=== PATIENT | male | born 2000 | race Caucasian/White ===

== ENCOUNTER 2020-04-30 21:48 | Emergency (ER) | payer MEDICAID ==
--- NOTE | 2020-04-30 22:04 | ERPHSYRPT ---
- History of Present Illness Time Seen by Provider: 04/30/20 22:04 Source: patient Exam Limitations: no limitations Physician History: This is a 20-year-old white male who was brought in by the police department because of suicidal ideation with a plan. Patient and his got into a big argument today and they are per his report. He told his that he was going to commit suicide by taking multiple pills. Patient states he has never been through this type of thing before. Patient denies chest pain and denies shortness of breath. He denies abdominal pain. He said no nausea vomiting or diarrhea. Patient denies any ingestion of any kind of over-the- counter medication or illicit drug use. Timing/Duration: today Severity of Symptoms-Max: moderate Severity of Symptoms-Current: moderate Context related to: significant other Suicidal thoughts: specific plan Associated Symptoms: depressed, frustrated, suicidal ideation Previous symptoms: no prior history Allergies/Adverse Reactions: No Known Drug Allergies Allergy (Unverified 04/30/20 21:54) Home Medications: No Reportable Medications [No Reported Medications] 04/30/20 [History] Travel Risk - International Travel Have you traveled outside of the country in past 3 weeks: No - Coronavirus Screening Are you exhibiting any of the following symptoms?: No Close contact with a COVID-19 positive Pt in past 14-21 Days: No - Past Medical History Pertinent Past Medical History: Yes - Past Surgical History Past Surgical History: Yes - Review of Systems Constitutional: No Symptoms Eyes: No Symptoms Ears, Nose, & Throat: No Symptoms Respiratory: No Symptoms Cardiac: No Symptoms Abdominal/Gastrointestinal: No Symptoms Genitourinary Symptoms: No Symptoms Musculoskeletal: No Symptoms Skin: No Symptoms Neurological: No Symptoms Psychological: Depression, Suicidal Ideations Endocrine: No Symptoms Hematologic/Lymphatic: No Symptoms Immunological/Allergic: No Symptoms All Other Systems: Reviewed and Negative - Nursing Vital Signs Nursing Vital Signs: Initial Vital Signs Temperature 98.2 F 04/30/20 21:48 Pulse Rate 84 04/30/20 21:48 Respiratory Rate 16 04/30/20 21:48 Blood Pressure 155/105 04/30/20 21:48 O2 Sat by Pulse Oximetry 100 04/30/20 21:48 Pain Scale Pain Intensity 0 - Physical Exam General Appearance: no apparent distress, alert, anxiety Eyes, Ears, Nose, Throat Exam: normal ENT inspection, moist mucous membranes Neck Exam: normal inspection, non-tender, supple, full range of motion Respiratory Exam: normal breath sounds, lungs clear, airway intact, No chest tenderness, No respiratory distress Cardiovascular Exam: regular rate/rhythm, normal heart sounds, normal peripheral pulses Gastrointestinal/Abdominal Exam: soft, normal bowel sounds, No tenderness Extremities Exam: normal inspection, normal range of motion, No evidence of injury Current Suicidality: has suicide plan Neurological Exam: alert, normal mood/affect, calm, equine internship II-XII nml as tested, oriented x 3, anxious, depressed affect Appearance: appropriate appearance, appropriate insight Behavior/Eye Contact/Speech: alert & cooperative, good eye contact Thoughts/Hallucinations: normal thought pattern, no apparent hallucination Skin Exam: normal color, warm, dry SpO2 Interpretation: normal O2 Delivery: Room Air - Course Nursing assessment & vital signs reviewed: Yes EKG Interpreted by Me: RATE (64), Sinus Rhythm, NORMAL AXIS, NORMAL INTERVALS, NORMAL QRS, NORMAL ST-T, Other (No acute ischemic changes. No comparison EKG available) Ordered Tests: Active Orders 24 hr Category Date Time Status EKG-ER Only STAT Care 04/30/20 22:04 Active ACETAMINOPHEN Stat Lab 04/30/20 22:20 Completed CBC W DIFF Stat Lab 04/30/20 22:20 Completed CMP Stat Lab 04/30/20 22:20 Completed ETHYL ALCOHOL Stat Lab 04/30/20 22:20 Completed SALICYLATE Stat Lab 04/30/20 22:20 Completed UA W/RFX UR CULTURE Stat Lab 04/30/20 22:20 Completed Urine Triage Profile Stat Lab 04/30/20 22:20 Completed Medication Summary Discontinued Medications Generic Name Dose Route Start Last Admin Trade Name Santosh PRN Reason Stop Dose Admin Lorazepam 0.5 mg 04/30/20 22:21 04/30/20 22:40 Ativan 0.5 Mg PO 04/30/20 22:22 0.5 mg STAT ONE Administration Lorazepam Confirm 04/30/20 22:39 Ativan 1 Mg Administered 04/30/20 22:40 Dose 1 mg .ROUTE .STFluGen-MED ONE Lab/Rad Data: Laboratory Result Diagrams 04/30/20 22:20 04/30/20 22:20 Laboratory Results 05/01/20 04/30/20 04/30/20 Range/Units 01:23 22:20 22:20 WBC (4.0-10.5) K/mm3 RBC (4.1-5.6) M/mm3 Hgb (12.5-18.0) gm/dl Hct (42-50) % MCV (78-100) fl MCH (26-32) pg MCHC (32-36) g/dl RDW (11.5-14.0) % Plt Count (150-450) K/mm3 MPV (7.5-11.0) fl Gran % (36.0-66.0) % Eos # (Auto) (0-0.5) Absolute Lymphs (auto) (1.0-4.6) Absolute Monos (auto) (0.0-1.3) Lymphocytes % (24.0-44.0) % Monocytes % (0.0-12.0) % Eosinophils % (0.00-5.0) % Basophils % (0.0-0.4) % Absolute Granulocytes (1.4-6.9) Basophils # (0-0.4) Sodium (137-145) mmol/L Potassium (3.5-5.1) mmol/L Chloride (98-107) mmol/L Carbon Dioxide (22-30) mmol/L Anion Gap (5-15) MEQ/L BUN (9-20) mg/dL Creatinine (0.66-1.25) mg/dL Estimated GFR ML/MIN Glucose (74-106) mg/dL Calcium (8.4-10.2) mg/dL Total Bilirubin (0.2-1.3) mg/dL AST (17-59) U/L ALT (0-50) U/L Alkaline Phosphatase (38-126) U/L Serum Total Protein (6.3-8.2) g/dL Albumin (3.5-5.0) g/dL Urine Color YELLOW (YELLOW) Urine Appearance CLEAR (CLEAR) Urine pH 7.0 (5-6) Ur Specific [place] 1.024 (1.005-1.025) Urine Protein NEGATIVE (Negative) Urine Ketones NEGATIVE (NEGATIVE) Urine Blood NEGATIVE (0-5) Evan/ul Urine Nitrite NEGATIVE (NEGATIVE) Urine Bilirubin NEGATIVE (NEGATIVE) Urine Urobilinogen 2 (0-1) mg/dL Ur Leukocyte Esterase NEGATIVE (NEGATIVE) Urine WBC (Auto) NONE (0-5) /HPF Urine RBC (Auto) NONE (0-2) /HPF U Epithel Cells (Auto) NONE (FEW) /HPF Urine Bacteria (Auto) NONE (NEGATIVE) /HPF Urine Mucus (Auto) SLIGHT (NEGATIVE) /HPF Urine Culture Reflexed NO (NO) Urine Glucose NEGATIVE (NEGATIVE) mg/dL Salicylates (2-20) mg/dL Urine Opiates Level NEGATIVE (NEGATIVE) Ur Methadone NEGATIVE (NEGATIVE) Acetaminophen (10-30) ug/ml Urine Barbiturates NEGATIVE (NEGATIVE) Ur Phencyclidine (PCP) NEGATIVE (NEGATIVE) Urine Amphetamine NEGATIVE (NEGATIVE) U Benzodiazepine Level NEGATIVE (NEGATIVE) Urine Cocaine NEGATIVE (NEGATIVE) Urine Marijuana (THC) POSITIVE (NEGATIVE) Ethyl Alcohol (0-10) mg/dL SARS-CoV-2 Ag (Rapid) NEGATIVE (NEGATIVE) 04/30/20 04/30/20 Range/Units 22:20 22:20 WBC 9.3 (4.0-10.5) K/mm3 RBC 5.33 (4.1-5.6) M/mm3 Hgb 15.4 (12.5-18.0) gm/dl Hct 45.5 (42-50) % MCV 85.4 (78-100) fl MCH 28.9 (26-32) pg MCHC 33.8 (32-36) g/dl RDW 12.9 (11.5-14.0) % Plt Count 293 (150-450) K/mm3 MPV 9.6 (7.5-11.0) fl Gran % 76.9 H (36.0-66.0) % Eos # (Auto) 0.05 (0-0.5) Absolute Lymphs (auto) 1.60 (1.0-4.6) Absolute Monos (auto) 0.47 (0.0-1.3) Lymphocytes % 17.2 L (24.0-44.0) % Monocytes % 5.1 (0.0-12.0) % Eosinophils % 0.5 (0.00-5.0) % Basophils % 0.3 (0.0-0.4) % Absolute Granulocytes 7.15 H (1.4-6.9) Basophils # 0.03 (0-0.4) Sodium 142 (137-145) mmol/L Potassium 3.7 (3.5-5.1) mmol/L Chloride 106 (98-107) mmol/L Carbon Dioxide 26 (22-30) mmol/L Anion Gap 14.1 (5-15) MEQ/L BUN 10 (9-20) mg/dL Creatinine 0.96 (0.66-1.25) mg/dL Estimated GFR > 60.0 ML/MIN Glucose 114 H (74-106) mg/dL Calcium 10.2 (8.4-10.2) mg/dL Total Bilirubin 0.50 (0.2-1.3) mg/dL AST 36 (17-59) U/L ALT 91 H (0-50) U/L Alkaline Phosphatase 47 (38-126) U/L Serum Total Protein 7.7 (6.3-8.2) g/dL Albumin 4.6 (3.5-5.0) g/dL Urine Color (YELLOW) Urine Appearance (CLEAR) Urine pH (5-6) Ur Specific [place] (1.005-1.025) Urine Protein (Negative) Urine Ketones (NEGATIVE) Urine Blood (0-5) Evan/ul Urine Nitrite (NEGATIVE) Urine Bilirubin (NEGATIVE) Urine Urobilinogen (0-1) mg/dL Ur Leukocyte Esterase (NEGATIVE) Urine WBC (Auto) (0-5) /HPF Urine RBC (Auto) (0-2) /HPF U Epithel Cells (Auto) (FEW) /HPF Urine Bacteria (Auto) (NEGATIVE) /HPF Urine Mucus (Auto) (NEGATIVE) /HPF Urine Culture Reflexed (NO) Urine Glucose (NEGATIVE) mg/dL Salicylates < 1.0 L (2-20) mg/dL Urine Opiates Level (NEGATIVE) Ur Methadone (NEGATIVE) Acetaminophen < 10 L (10-30) ug/ml Urine Barbiturates (NEGATIVE) Ur Phencyclidine (PCP) (NEGATIVE) Urine Amphetamine (NEGATIVE) U Benzodiazepine Level (NEGATIVE) Urine Cocaine (NEGATIVE) Urine Marijuana (THC) (NEGATIVE) Ethyl Alcohol < 10 (0-10) mg/dL SARS-CoV-2 Ag (Rapid) (NEGATIVE) - Progress Progress: unchanged, re-examined Counseled pt/family regarding: lab results, diagnosis, need for follow-up, rad results - Departure Departure Disposition: Transfer Clinical Impression: Suicidal ideation Condition: Stable Critical Care Time: No Referrals: RUPAL HILL [Primary Care Provider] -
[2020-04-30] MEDS ORDERED: Ativan 0.5 MG PO ONE (22:21)
[2020-04-30 22:24] LABS: Absolute Neutrophil Ct (ANC) 7.15 (1.4-6.9); BASOPHIL % 0.3 % (0.0-0.4); Basophil (Absolute #) 0.03 (0-0.4); Eosinophil % 0.5 % (0.00-5.0); Eosinophil (Absolute #) 0.05 (0-0.5); Hematocrit 45.5 % (42-50); Hemoglobin 15.4 gm/dl (12.5-18.0); Lymphocytes % 17.2 % (24.0-44.0); Mean Cell Volume 85.4 fl (78-100); Mean Corpuscular Hemoglobin 28.9 pg (26-32); Mean Corpuscular Hgb Concent. 33.8 g/dl (32-36); Mean Platelet Volume 9.6 fl (7.5-11.0); Monocyte (Absolute #) 0.47 (0.0-1.3); Monocytes % 5.1 % (0.0-12.0); Neutrophil % 76.9 % (36.0-66.0); Platelet Count 293 K/mm3 (150-450); Red Blood Count 5.33 M/mm3 (4.1-5.6); Red Cell Distribution Width 12.9 % (11.5-14.0); White Blood Count 9.3 K/mm3 (4.0-10.5)
[2020-04-30 22:26] LABS: Appearance CLEAR (CLEAR); Bilirubin NEGATIVE (NEGATIVE); Blood NEGATIVE Ery/ul (0-5); Glucose NEGATIVE (NEGATIVE); Ketones NEGATIVE (NEGATIVE); Leukocyte Esterase NEGATIVE (NEGATIVE); Mucus SLIGHT /HPF (NEGATIVE); Nitrite NEGATIVE (NEGATIVE); Protein,Urine Dip NEGATIVE (Negative); Specific Gravity 1.024 (1.005-1.025); Urobilinogen 2 mg/dL (0-1)
[2020-04-30 22:35] LABS: ACETAMINOPHEN < 10 ug/ml (10-30); ALBUMIN 4.6 g/dL (3.5-5.0); ALKALINE PHOSPHATASE 47 U/L (38-126); ANION GAP 14.1 MEQ/L (5-15); BLOOD UREA NITROGEN 10 mg/dL (9-20); CHLORIDE 106 mmol/L (98-107); Calcium 10.2 mg/dL (8.4-10.2); Carbon Dioxide 26 mmol/L (22-30); Creatinine 1 0.96 mg/dL (0.66-1.25); EST GLOMERULAR FILTRATION RATE > 60.0 ML/MIN; ETHYL ALCOHOL < 10 mg/dL (0-10); Glucose 114 mg/dL (74-106); Potassium 3.7 mmol/L (3.5-5.1); SALICYLATE < 1.0 mg/dL (2-20); SGOT/AST 36 U/L (17-59); SGPT/ALT 91 U/L (0-50); SODIUM 142 mmol/L (137-145); Total Protein 7.7 g/dL (6.3-8.2)
[2020-04-30 22:38] LABS: Amphetamine,Urine NEGATIVE (NEGATIVE); Barbiturate,Urine NEGATIVE (NEGATIVE); Benzodiazepine,Urine NEGATIVE (NEGATIVE); Cocaine,Urine NEGATIVE (NEGATIVE); Methadone,Urine NEGATIVE (NEGATIVE); Opiate,Urine NEGATIVE (NEGATIVE); PCP,Urine NEGATIVE (NEGATIVE); THC,Urine POSITIVE (NEGATIVE)
[2020-04-30] MEDS ORDERED: Ativan 1 MG ONE (22:39)
[2020-05-01 01:14] VITALS: O2SAT 98
[2020-05-01 01:39] LABS: COVID AG -BINAX NOW RAPID TEST NEGATIVE (NEGATIVE)
[2020-05-01 03:09] VITALS: BP 154/93; PULSE 75
== END 2020-05-01 03:40 ==
LOC: ED 21:48
DX: R45.851 Suicidal ideations (principal); F32.9 Major depressive disorder, single episode, unspecified
CPT/HCPCS: 36415; 80053; 80307; 81001; 85025; 93005; 99000; 99285; A9270-GY; G0480

== ENCOUNTER 2020-09-07 09:50 | Day surgery (SDC) | payer MEDICAID, OTHER ==
--- NOTE | 2020-09-07 08:00 | HP ---
DATE OF SURGERY: 09/07/2020 HISTORY OF PRESENT ILLNESS: The patient is a 20 year-old who had some problem with eczema and discomfort. He has pilonidal cyst disease that would benefit from excision. 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 Reflux. Eczema. PAST SURGICAL HISTORY: Pyloric stenosis surgery as a child. Tonsillectomy. MEDICATIONS: Claritin, mirtazapine, omeprazole, sertraline, hydrocortisone. ALLERGIES: NKDA. FAMILY HISTORY: Negative in regards to this problem. SOCIAL HISTORY: He does vape, denies alcohol abuse. REVIEW OF SYSTEMS: Fourteen systems reviewed per noted above. No chest pain or palpitations. Other systems negative or noncontributory as above and per preadmission questionnaire. PHYSICAL EXAMINATION: GENERAL: No acute distress. HEENT: Sclerae nonicteric. NECK: No JVD. CHEST: Equal excursion, nonlabored breathing. CVS: Regular rate and rhythm. ABDOMEN: Soft, nontender. EXTREMITIES: No significant edema. NEURO: Alert, oriented, moving extremities symmetrically. No gross motor deficits noted. PSYCH: Appropriate mood and affect. IMPRESSION: Pilonidal area there are some pits consistent with pilonidal cyst disease. Pilonidal cyst disease, symptomatic pilonidal cyst disease, increasing discomfort. He is in need of excision and biopsy. Discussed risks and benefits of the procedure in detail but not limited to bleeding or infection, possible need for packing which could take eight to twelve weeks to heal, 5% heal slow and 5% fail to heal, possibly need other procedures or intervention. It is important to keep all hair away from the wound perioperatively and long-term down the road to decrease risk of recurrence. Important that it needs to be packed with packing to the base of the wound to minimize infection to the area. He understands as this it is cleaned up at the time of the procedure and we are able to close this with flaps, there is a possibility of dehiscence later requiring packing and aches, pains, burning or numbness. Risk of anesthesia, deep vein thrombosis, pulmonary embolism, pneumonia as well as risk of bleeding, up to possible 10% risk of recurrence possibly requiring other treatments or procedures. He understands and agrees to the planned procedure, will proceed with excision of pilonidal cyst disease possible flap closure, possible packing as an outpatient.
[~2020-09-07 09:50] MED LIST: Lactated Ringers 1,000 ML IV ONE; Sensorcaine 0.25% 10 ML ONE
[2020-09-07] MEDS ORDERED: CEFAZOLIN 2 GM-D5W BAG** 2 GM/50 ML ML IV ONE (09:56)
[2020-09-07] MEDS ORDERED: Lactated Ringers 1,000 ML IV SCH (10:00)
[2020-09-07] MEDS ORDERED: CEFAZOLIN 2 GM-D5W BAG** 2 GM/50 ML ML IV SCH (10:00)
[2020-09-07] MEDS ORDERED: DIPRIVAN 200 MG/20 ML IV ONE (12:32)
[2020-09-07] MEDS ORDERED: SUBLIMAZE 100 MCG/2 ML ONE ×3 (12:32→13:46)
[2020-09-07] MEDS ORDERED: Quelicin Fliptop 200 MG/10 ML ONE (12:32)
[2020-09-07] MEDS ORDERED: Versed 2 MG/2 ML Injection ONE (12:33)
[2020-09-07] MEDS ORDERED: Zemuron 100 MG/10 ML ONE (13:00)
[2020-09-07] MEDS ORDERED: BRIDION 200MG/2ML IV ONE (13:13)
[2020-09-07] MEDS ORDERED: TORAdol 30 mg Injection ONE (13:45)
[2020-09-07 15:01] VITALS: BP 125/85; PULSE 75; O2SAT 99
--- NOTE | 2020-09-08 08:47 | OP ---
SURGERY DATE/TIME: 09/07/2020 1230 PREOPERATIVE DIAGNOSIS: Persistent pilonidal cyst disease, history of infection in the past. POSTOPERATIVE DIAGNOSIS: Persistent pilonidal cyst disease, history of infection in the past. PROCEDURE: Excisional biopsy pilonidal cyst disease with advancement flap closure. SURGEON: Dr. Torrey Rubio. ANESTHESIA: General. ESTIMATED BLOOD LOSS: Minimal. INDICATIONS: As noted above. Risks and benefits explained in detail and not limited to and consent obtained. DESCRIPTION OF PROCEDURE AND FINDINGS: The patient is taken to the operating room. General anesthesia induced. Placed in prone position, appropriate padding positioned per anesthesia and OR staff. Prepped and draped in usual sterile fashion. After official time out and no disagreement with planned procedure, marking out along the pits in the midline, dissection is carried deep down to the level of the post-sacral fascial area carefully mobilizing the pit and track off. Total area around the area to get margins was about 6 cm out to normal appearing subcutaneous tissue surrounding the area. It was passed off for pathology. The wound is irrigated out. Hemostasis controlled with some pinpoint cautery. Good hemostasis noted. As there had been no kan pus pocket it was felt worthwhile to try to close this with local flaps. Therefore the flaps were undermined on either side and advanced back to midline with interrupted 3-0 Vicryl in the deep subcu and tissue as well as the superficial subcu portion of the flap. The skin closed with 4-0 Vicryl and interrupted 3-0 Prolene used to reinforce the skin given location, Dermabond, sterile dressing applied. The patient tolerated the procedure well. There were no immediate complications. Again, about 6 cm in size. Findings discussed with the family out in the waiting area.
== END 2020-09-07 15:05 | disposition home or self-care (01) ==
LOC: SDC 09:50
PROVIDERS: ATTEND Surgery
DX: L05.91 Pilonidal cyst without abscess (principal)
CPT/HCPCS: J0330; J0690; J1885; J2250; J2704; J3010

== ENCOUNTER 2024-01-16 08:30 | Emergency (ER) | payer OTHER ==
[2024-01-16 08:42] VITALS: TEMP 96.8
[2024-01-16 09:14] LABS: Absolute Neutrophil Ct (ANC) 3.23 x10^3/uL (1.78-5.38); BASOPHIL % 0.8 % (0.2-1.2); Basophil (Absolute #) 0.05 x10^3/uL (0.01-0.08); Eosinophil % 3.8 % (0.8-7.0); Eosinophil (Absolute #) 0.25 x10^3/uL (0.04-0.54); Hematocrit 44.3 % (40.1-51.0); Hemoglobin 14.8 g/dL (13.7-17.5); IMMATURE GRAN # 0.03 x10^3u/L (0.001-0.031); IMMATURE GRAN % 0.5 % (0.001-0.429); Lymphocyte (Absolute #) 2.53 x10^3/uL (1.32-3.57); Lymphocytes % 38.2 % (21.8-53.1); Mean Cell Volume 86.4 fL (79.0-92.2); Mean Corpuscular Hemoglobin 28.8 pg (25.7-32.2); Mean Corpuscular Hgb Concent. 33.4 g/dL (32.3-36.5); Mean Platelet Volume 9.3 fL (9.4-12.4); Monocyte (Absolute #) 0.54 x10^3/uL (0.30-0.82); Monocytes % 8.1 % (5.3-12.2); Neutrophil % 48.6 % (34.0-67.9); Platelet Count 255 x10^3/uL (163-337); Red Blood Count 5.13 x10^6/uL (4.63-6.08); Red Cell Distribution Width 12.2 % (11.6-14.4); White Blood Count 6.6 x10^3/uL (4.23-9.07)
[2024-01-16] MEDS ORDERED: MORPHINE SULFATE 4 MG INJ ONE (09:18)
[2024-01-16] MEDS ORDERED: Sodium Chloride 0.9% 1000 ML 1,000 ML ONE (09:18)
[2024-01-16] MEDS ORDERED: Zofran 4 MG/2 ML VIAL ONE (09:18)
[2024-01-16 09:26] LABS: ALBUMIN 4.5 g/dL (3.5-5.0); ANION GAP 16.3 MEQ/L (5-15); BILIRUBIN,TOTAL 0.5 mg/dL (0.2-1.3); Calcium 9.5 mg/dL (8.4-10.2); Creatinine 1 1.05 mg/dL (0.66-1.25); Potassium 4.1 mmol/L (3.5-5.1); Total Protein 7.5 g/dL (6.3-8.2)
[2024-01-16] MEDS: MORPHINE SULFATE 4 MG INJ IV ONE (09:27)
[2024-01-16] MEDS: Sodium Chloride 0.9% 1000 ML 1,000 ML IV STA (09:27)
[2024-01-16] MEDS: Zofran 4 MG/2 ML VIAL IV ONE (09:27)
--- NOTE | 2024-01-16 10:37 | ERPHSYRPT ---
- History of Present Illness Time Seen by Provider: 01/16/24 08:45 Source: patient Exam Limitations: no limitations Patient Subjective Stated Complaint: pt c/o of right sided face pain Triage Nursing Assessment: Pt brought to the ER by his /girlfriend, hypertensive, rates pain anywhere from 7-10/10, pulses normal, skin n/w/d, no difficulty breathing, had this pain last month and was told that it was teeth and he has had them extracted, pain up the right side of his face from his jaw to his quaker Physician History: 23-year-old male presents to our ED for evaluation of right-sided neck pain. Patient states the pain has been ongoing for approximately a month however pain acutely worse last night.. During patient's last ED visit he was advised that the pain was due to his teeth. Patient followed up with a dentist and had molars extracted. And spite of this management patient reports the pain has persisted. Pain described as an ache that is localized to the anterior aspect of the neck just right to the trachea. Pain radiates upward into the jaw. No associated chest pain no nausea vomiting or diaphoresis. Pain reproduced with palpation to the involved area. Pain improved with rest somewhat. No trauma. No difficulty swallowing or breathing. Patient tolerating oral secretions well. Patient has multiple carious dentition. Patient states otherwise healthy. Significant other at bedside along with 2 children. They voiced no other complaints or concerns at this time. Portions of this note were created with voice recognition technology. There may be grammatical, spelling, punctuation or sound alike errors Timing/Duration: week(s) (Pain for several weeks however pain acutely worse last night) Severity: moderate Modifying Factors: Improves With: nothing Associated Symptoms: denies symptoms Allergies/Adverse Reactions: No Known Drug Allergies Allergy (Verified 01/16/24 08:42) Home Medications: Mirtazapine [Remeron] 15 mg PO DAILY 08/26/20 [History] Dicyclomine HCl 20 mg [Bentyl 20 mg] 20 mg PO BID 01/16/24 [History] Hydroxyzine HCl 25 mg [Atarax 25 mg] 25 mg PO BID 01/16/24 [History] Lisdexamfetamine Dimesylate [Vyvanse] 30 mg PO DAILY 01/16/24 [History] Lisinopril 10 mg [Zestril 10 MG] 10 mg PO DAILY 01/16/24 [History] Hx Tetanus, Diphtheria Vaccination/Date Given: Yes Hx Influenza Vaccination/Date Given: No Travel Risk - International Travel Have you traveled outside of the country in past 3 weeks: No - Emerging Infectious Disease Are you exhibiting symptoms associated with any current EIDs: No - Review of Systems Constitutional: No Symptoms, No Fever, No Chills Eyes: No Symptoms Ears, Nose, & Throat: No Symptoms Respiratory: No Symptoms, No Cough, No Dyspnea Cardiac: No Symptoms, No Chest Pain, No Edema, No Syncope Abdominal/Gastrointestinal: No Symptoms, No Abdominal Pain, No Nausea, No Vomiting, No Diarrhea Genitourinary Symptoms: No Symptoms, No Dysuria Musculoskeletal: No Symptoms, No Back Pain, No Neck Pain Skin: No Symptoms, No Rash Neurological: No Symptoms, No Dizziness, No Focal Weakness, No Sensory Changes Psychological: No Symptoms Endocrine: No Symptoms Hematologic/Lymphatic: No Symptoms Immunological/Allergic: No Symptoms All Other Systems: Reviewed and Negative - Past Medical History Pertinent Past Medical History: Yes Neurological History: No Pertinent History ENT History: No Pertinent History Cardiac History: No Pertinent History Respiratory History: No Pertinent History Endocrine Medical History: No Pertinent History Musculoskeletal History: No Pertinent History GI Medical History: GERD, Other History: No Pertinent History Psycho-Social History: Anxiety, Depression Male Reproductive Disorders: No Pertinent History Other Medical History: Pyloric stenosis as a child. - Past Surgical History Past Surgical History: Yes Neuro Surgical History: No Pertinent History Cardiac: No Pertinent History Respiratory: No Pertinent History Gastrointestinal: No Pertinent History Genitourinary: No Pertinent History Musculoskeletal: No Pertinent History Male Surgical History: No Pertinent History Other Surgical History: Pyloric stenosis surgery as a baby. - Social History Smoking Status: Current every day smoker How long have you smoked: vape Exposure to second hand smoke: Yes Drug Use: none Patient Lives Alone: No - Social Determinants of Health Will the patient participate in the screening: Yes Do you worry about a steady place to live?: No Do you have any problems with any of the following?: No known problems In the past 12 months,have you had to go without utilities?: No Transportation Issues: No Has anyone in your support network made you feel unsafe?: No Have you or anyone in your house had to go without enough: No - Nursing Vital Signs Nursing Vital Signs: Initial Vital Signs Temperature 96.8 F 01/16/24 08:35 Pulse Rate 90 01/16/24 08:35 Blood Pressure 162/120 01/16/24 08:35 O2 Sat by Pulse Oximetry 98 01/16/24 08:35 Pain Scale Pain Intensity [] 7 Pain Intensity 7 - Physical Exam General Appearance: no apparent distress, alert Eye Exam: PERRL/EOMI, eyes nml inspection Ears, Nose, Throat Exam: normal ENT inspection, TMs normal, pharynx normal, moist mucous membranes Neck Exam: normal inspection, non-tender, supple, full range of motion, other (Tenderness to palpation right anterior neck just right of midline.) Respiratory Exam: normal breath sounds, lungs clear, No respiratory distress Cardiovascular Exam: regular rate/rhythm, normal heart sounds, normal peripheral pulses Gastrointestinal/Abdomen Exam: soft, normal bowel sounds, No tenderness, No mass Back Exam: normal inspection, normal range of motion, No CVA tenderness, No vertebral tenderness Extremity Exam: normal inspection, normal range of motion, pelvis stable Neurologic Exam: alert, oriented x 3, cooperative, normal mood/affect, nml cerebellar function, nml station & gait, sensation nml, No motor deficits Skin Exam: normal color, warm, dry, No rash Lymphatic Exam: No adenopathy SpO2 Interpretation: normal SpO2: 98 O2 Delivery: Room Air - Course Nursing assessment & vital signs reviewed: Yes - CT Exams Soft Tissue Neck CT Interpretation: Tele-radiologist Report (Normal CT neck with contrast) Ordered Tests: Active Orders 24 hr Category Date Time Status Sheet Metal Supervisor STAT Care 01/16/24 08:59 Active IV Insertion STAT Care 01/16/24 08:58 Active Pulse Oximetry (ED) STAT Care 01/16/24 08:58 Active NECK WITH CONTRAST [CT] Stat Exams 01/16/24 09:01 Completed CBC W DIFF Stat Lab 01/16/24 09:10 Completed CMP Stat Lab 01/16/24 09:10 Completed Medication Summary Discontinued Medications Generic Name Dose Route Start Last Admin Trade Name Freq PRN Reason Stop Dose Admin Sodium Chloride 1,000 mls @ 999 mls/hr 01/16/24 09:00 01/16/24 10:55 Sodium Chloride 0.9% 1000 Ml IV 01/16/24 10:00 Infused .Q1H1M STA Infusion Sodium Chloride Confirm 01/16/24 09:18 Sodium Chloride 0.9% 1000 Ml Administered 01/16/24 09:19 Dose 1,000 mls @ ud .ROUTE .STK-MED ONE Morphine Sulfate 4 mg 01/16/24 08:58 01/16/24 09:27 Morphine Sulfate 4 Mg/Ml Injection IV 01/16/24 08:59 4 mg STAT ONE Administration Morphine Sulfate Confirm 01/16/24 09:18 Morphine Sulfate 4 Mg/Ml Injection Administered 01/16/24 09:19 Dose 4 mg .ROUTE .STK-MED ONE Ondansetron HCl 4 mg 01/16/24 08:59 01/16/24 09:27 Ondansetron Hcl 4 Mg/2 Ml Vial IV 01/16/24 09:00 4 mg STAT ONE Administration Ondansetron HCl Confirm 01/16/24 09:18 Ondansetron Hcl 4 Mg/2 Ml Vial Administered 01/16/24 09:19 Dose 4 mg .ROUTE .STK-MED ONE Lab/Rad Data: Laboratory Result Diagrams 01/16/24 09:10 01/16/24 09:10 Laboratory Results 01/16/24 01/16/24 Range/Units 09:10 09:10 WBC 6.6 (4.23-9.07) x10^3/uL RBC 5.13 (4.63-6.08) x10^6/uL Hgb 14.8 (13.7-17.5) g/dL Hct 44.3 (40.1-51.0) % MCV 86.4 (79.0-92.2) fL MCH 28.8 (25.7-32.2) pg MCHC 33.4 (32.3-36.5) g/dL RDW 12.2 (11.6-14.4) % Plt Count 255 (163-337) x10^3/uL MPV 9.3 L (9.4-12.4) fL Gran % 48.6 (34.0-67.9) % Immature Gran % (Auto) 0.5 H (0.001-0.429) % Nucleat RBC Rel Count 0.0 (0.00-0.2) % Eos # (Auto) 0.25 (0.04-0.54) x10^3/uL Immature Gran # (Auto) 0.03 (0.001-0.031) x10^3u/L Absolute Lymphs (auto) 2.53 (1.32-3.57) x10^3/uL Absolute Monos (auto) 0.54 (0.30-0.82) x10^3/uL Absolute Nucleated RBC 0.00 (0.00-0.012) x10^3u/L Lymphocytes % 38.2 (21.8-53.1) % Monocytes % 8.1 (5.3-12.2) % Eosinophils % 3.8 (0.8-7.0) % Basophils % 0.8 (0.2-1.2) % Absolute Granulocytes 3.23 (1.78-5.38) x10^3/uL Basophils # 0.05 (0.01-0.08) x10^3/uL Sodium 143 (135-145) mmol/L Potassium 4.1 (3.5-5.1) mmol/L Chloride 107 (98-107) mmol/L Carbon Dioxide 24 (22-30) mmol/L Anion Gap 16.3 H (5-15) MEQ/L BUN 14 (9-20) mg/dL Creatinine 1.05 (0.66-1.25) mg/dL Estimated GFR 101.0 ML/MIN Glucose 103 (74-106) mg/dL Calcium 9.5 (8.4-10.2) mg/dL Total Bilirubin 0.50 (0.2-1.3) mg/dL AST 42 (17-59) U/L ALT 78 H (0-50) U/L Alkaline Phosphatase 34 L (38-126) U/L Serum Total Protein 7.5 (6.3-8.2) g/dL Albumin 4.5 (3.5-5.0) g/dL - Progress Progress: improved Progress Note: 23-year-old male presents to our ED for evaluation of right anterior neck pain. Physical exam essentially nonremarkable. CT soft tissue neck with contrast essentially normal. Laboratory workup essentially normal. Patient received 4 mg of morphine for pain control. Pain improved. Pain eventually reoccurred. Patient requested additional pain medication. Patient given 30 mg of Toradol IV as well. Patient comfortable. Will discharge home. Patient received a referral to Dr. Guerra ENT physician in [facility]. Patient has a follow-up appointment scheduled with his dentist as well. Will discharge home. No indication for further workup at this time. Patient voices no other complaints or concerns. A prescription for Toradol forwarded to patient's pharmacy. Portions of this note were created with voice recognition technology. There may be grammatical, spelling, punctuation or sound alike errors Complexity problem addressed is moderate acute complicated. No critical care time. Complex data reviewed and analyzed is moderate. Test ordered test reviewed results analyzed and correlated clinically with history and physical exam. Risk of complication and or risk of morbidity/mortality patient management is moderate. A prescription for Toradol forwarded to patient's pharmacy. Vital stable. Time spent to discharge patient is approximately 15 minutes. Plan of care established for shared decision making. No social determinants of health present to impede follow-up. Portions of this note were created with voice recognition technology. There may be grammatical, spelling, punctuation or sound alike errors 01/16/24 11:38 Counseled pt/family regarding: lab results, diagnosis, need for follow-up, rad results - Departure Departure Disposition: Home Clinical Impression: Anterior neck pain Condition: Stable Critical Care Time: No Referrals: RUPAL HILL NP [Primary Care Provider] - Follow up/PCP as directed MARÍA GUERRA [NON-STAFF PHY W/O PRIVILEGES] - Follow up/PCP as directed Additional Instructions: Discharge/Care Plan KAY FRIEND was seen on 01/16/24 in the Emergency Room. The patient was counseled regarding Diagnosis,Lab results, Imaging studies, need for follow up and when to return to the Emergency Room. Prescriptions given: Discharge Note I have spoken with the patient and/or caregivers. I have explained the patient's condition, diagnosis and treatment plan based on the information available to me at this time. I have answered the patient's and/or caregiver's questions and addressed any concerns. The patient and/or caregivers have as good understanding of the patient's diagnosis, condition and treatment plan as can be expected at this point. The vital signs have been stable. The patient's condition is stable and appropriate for discharge from the emergency department. The patient will pursue further outpatient evaluation with the primary care physician or other designated or consulting physician as outlined in the discharge instructions. The patient and/or caregivers are agreeable to this plan of care and follow-up instructions have been explained in detail. The patient and/or caregivers have received these instruction. The patient/and or caregivers are aware that any significant change in condition or worsening of symptoms should prompt an immediate return to this or the closest emergency department or call 911. Prescriptions: Ketorolac Trometh 10 mg Tab [TORAdol 10 MG TABLET] 10 mg PO TID 5 Days #15 tablet
--- NOTE | 2024-01-16 10:55 | XRAY ---
Indication: Right neck pain several months with not. Multiple contiguous axial images obtained through the neck using 80 cc Isovue 370 contrast. Cutaneous BB placed over region of interest. Comparison: None Cutaneous marker is right anterolateral at the level of the hyoid. No underlying solid/cystic mass or pathologic lymphadenopathy. Parotid and submandibular glands are bilaterally symmetric. A few centimeter/subcentimeter cervical and submandibular lymph nodes nodes, none pathologically enlarged. Major arteries/veins are normal in course and caliber. Thyroid gland enhances homogeneously. Supra-and infraglottic airway are widely patent. Normal epiglottis. Osseous structures intact. No suspicious bony lesions. Base of brain and lung apices are unremarkable. Visualized paranasal sinuses and mastoid air cells are clear. Impression: Normal CT neck with contrast exam.
[2024-01-16 11:32] VITALS: O2SAT 98
[2024-01-16] MEDS ORDERED: TORAdol 30 mg Injection ONE (11:37)
[2024-01-16] MEDS: TORAdol 30 mg Injection IV ONE (11:38)
[2024-01-16 11:42] VITALS: BP 153/109; PULSE 63; RESP 21
== END 2024-01-16 11:53 | disposition home or self-care (01) ==
LOC: ED 08:30
DX: M54.2 Cervicalgia (principal); Z79.899 Other long term (current) drug therapy; Z72.0 Tobacco use
CPT/HCPCS: 36415; 70491; 80053; 85025; 93041; 94760; 96360; 96374; 96375; 99284; J1885; J2270; J2405